=== PATIENT | female | born 1960 | race African-American/Black ===

== ENCOUNTER 2021-06-29 19:07 | Inpatient (IN) | payer MEDICARE ==
[2021-06-29 20:45] LABS: #Basophils 0.1 thou/uL (0.0-0.2); #Eosinphils 0.3 thou/uL (0.0-0.7); #Lymphocytes 4.1 thou/uL (1.20-3.40); #Monocytes 0.8 thou/uL (0.11-0.59); #Neutrophils 6.4 thou/uL (1.40-6.50); %Basophils 1.1 % (0.0-1.0); %Eosinophils 2.4 % (0.0-10.0); %Lymphocytes 35.1 % (21.0-51.0); %Monocytes 6.6 % (0.0-10.0); %Neutrophils 54.8 % (42.0-75.0); Mean Corpuscular HGB CONC 33.5 g/dL (32.0-36.0); Mean Corpuscular Hemoglobin 30.4 pg (27.0-31.0); Mean Corpuscular Volume 90.8 fL (78.0-98.0); Mean Platelet Volume 7.1 fL (7.4-10.4); Platelet Count 295 thou/uL (130-400); RBC Distribution Width 11.7 % (11.5-14.5); Red Blood Cell (RBC) Count 4.61 mill/uL (4.20-5.40); White Blood Cell (WBC) Count 11.7 thou/uL (4.8-10.8)
[2021-06-29] MEDS ORDERED: Nitroglycerin 2% Ointment 1 INCH/1 GM Packet ONE (20:57)
[2021-06-29 21:05] LABS: ALT (SGPT) 9 U/L (8-55); AST (SGOT) 13 U/L (5-34); Albumin 4.2 g/dL (3.5-5.0); Alkaline Phosphatase 110 U/L (40-110); Anion Gap 14 mmol/L (10-20); BUN (Urea Nitrogen) 12 mg/dL (9.8-20.1); Bilirubin, Total 0.4 mg/dL (0.2-1.2); Calc. Creatinine Clearance 0 mL/min (70-130); Calcium 9.7 mg/dL (7.8-10.44); Carbon Dioxide 27 mmol/L (22-29); Chloride 105 mmol/L (98-107); Globulin 3.5 g/dL (2.4-3.5); Glucose 96 mg/dL (70-105); Potassium 3.6 mmol/L (3.5-5.1); Protein, Total 7.7 g/dL (6.0-8.3); Sodium 142 mmol/L (136-145)
[2021-06-29] MEDS ORDERED: Prochlorperazine 10 MG/2 ML VIAL IVP SCH (21:45)
[2021-06-29] MEDS ORDERED: Acetaminophen 500 MG TAB ONE (21:52)
[2021-06-29 23:33] VITALS: BMI 36.6
[2021-06-30] MEDS ORDERED: Ondansetron ODT 4 MG TAB PO PRN (00:24)
[2021-06-30] MEDS ORDERED: Acetaminophen 325 MG TAB PO PRN (00:24)
[2021-06-30] MEDS ORDERED: Ondansetron PF 4 MG/2 ML Vial IVP PRN (00:24)
[2021-06-30] MEDS ORDERED: Acetaminophen 650 MG Suppository PR PRN (00:24)
[2021-06-30] MEDS ORDERED: hydrALAZINE 20 MG/ML VIAL SLOW IVP PRN ×2 (02:56→03:01)
[2021-06-30] MEDS ORDERED: Amlodipine 10 MG TAB PO SCH ×2 (03:00→21:00)
[2021-06-30 04:52] LABS: #Basophils 0.1 thou/uL (0.0-0.2); #Eosinphils 0.3 thou/uL (0.0-0.7); #Lymphocytes 4.2 thou/uL (1.20-3.40); #Monocytes 0.7 thou/uL (0.11-0.59); #Neutrophils 4.1 thou/uL (1.40-6.50); %Basophils 0.9 % (0.0-1.0); %Eosinophils 3.6 % (0.0-10.0); %Lymphocytes 44.9 % (21.0-51.0); %Monocytes 7.4 % (0.0-10.0); %Neutrophils 43.2 % (42.0-75.0); Hemoglobin 13.1 g/dL (12.0-16.0); Mean Corpuscular HGB CONC 32.8 g/dL (32.0-36.0); Mean Corpuscular Volume 91.5 fL (78.0-98.0); Mean Platelet Volume 7.4 fL (7.4-10.4); Platelet Count 271 thou/uL (130-400); RBC Distribution Width 11.9 % (11.5-14.5); Red Blood Cell (RBC) Count 4.36 mill/uL (4.20-5.40); White Blood Cell (WBC) Count 9.4 thou/uL (4.8-10.8)
[2021-06-30 05:13] LABS: Anion Gap 14 mmol/L (10-20); BUN (Urea Nitrogen) 10 mg/dL (9.8-20.1); Calc. Creatinine Clearance 133 mL/min (70-130); Calcium 9.4 mg/dL (7.8-10.44); Carbon Dioxide 22 mmol/L (22-29); Chloride 106 mmol/L (98-107); Glucose 90 mg/dL (70-105); Potassium 3.6 mmol/L (3.5-5.1); Sodium 138 mmol/L (136-145)
[2021-06-30] MEDS: Enoxaparin Sodium 40 MG/0.4 ML SYRINGE SC SCH (08:18)
[2021-06-30] MEDS: DorzolamidE/Timolol 2%/0.5% Ophth Soln 10 ml Bottle L EYE SCH (10:33)
[2021-06-30] MEDS ORDERED: Aspirin 325 mg Enteric Coated Tablet PO SCH (12:45)
[2021-06-30] MEDS ORDERED: Amoxicillin/Potassium Clav 875 MG TAB PO SCH (13:00)
[2021-06-30 14:04] LABS: SARS-CoV-2 PCR by NAA Not Detected (NotDetected)
[2021-06-30] MEDS: Latanoprost 0.005% Ophth Soln 2.5 ml Bottle EA EYE SCH (20:47)
[2021-06-30] MEDS: Atorvastatin Calcium 40 MG TAB PO SCH (20:48)
[2021-06-30] MEDS: lamoTRIgine 100 MG TAB PO SCH (20:49)
[2021-06-30] MEDS: Amoxicillin/Potassium Clav 875 MG TAB PO SCH (20:51)
[2021-07-01] MEDS: Enoxaparin Sodium 40 MG/0.4 ML SYRINGE SC SCH (08:00)
[2021-07-01] MEDS: Aspirin 81 mg Enteric Coated Tablet PO SCH (08:00)
[2021-07-01] MEDS: Amoxicillin/Potassium Clav 875 MG TAB PO SCH ×2 (08:00→21:06)
[2021-07-01 08:20] LABS: #Basophils 0.1 thou/uL (0.0-0.2); #Eosinphils 0.3 thou/uL (0.0-0.7); #Lymphocytes 3.1 thou/uL (1.20-3.40); #Monocytes 0.5 thou/uL (0.11-0.59); #Neutrophils 4.4 thou/uL (1.40-6.50); %Basophils 1.2 % (0.0-1.0); %Lymphocytes 36.5 % (21.0-51.0); %Monocytes 5.6 % (0.0-10.0); %Neutrophils 52.6 % (42.0-75.0); Mean Corpuscular HGB CONC 32.3 g/dL (32.0-36.0); Mean Corpuscular Hemoglobin 29.4 pg (27.0-31.0); Mean Platelet Volume 7.4 fL (7.4-10.4); Platelet Count 277 thou/uL (130-400); RBC Distribution Width 11.8 % (11.5-14.5); Red Blood Cell (RBC) Count 4.44 mill/uL (4.20-5.40); White Blood Cell (WBC) Count 8.4 thou/uL (4.8-10.8)
[2021-07-01 08:43] LABS: Hemoglobin A1c 5.5 % (4.0-6.0)
[2021-07-01 08:46] LABS: Anion Gap 14 mmol/L (10-20); BUN (Urea Nitrogen) 10 mg/dL (9.8-20.1); Calc. Creatinine Clearance 126 mL/min (70-130); Calcium 9.3 mg/dL (7.8-10.44); Carbon Dioxide 22 mmol/L (22-29); Cardiac Risk 6.4 (Less than 4.5); Chloride 106 mmol/L (98-107); Cholesterol 235 mg/dl (< 200 Desired); Glucose 91 mg/dL (70-105); HDL Cholesterol 37 mg/dL (>60 Neg Risk); LDL Cholesterol, Calculated 182 mg/dL; Magnesium 1.8 mg/dL (1.6-2.6); Phosphorus 3.7 mg/dL (2.3-4.7); Potassium 4.1 mmol/L (3.5-5.1); Sodium 138 mmol/L (136-145); Triglycerides 80 mg/dL (Less than 150)
[2021-07-01] MEDS: DorzolamidE/Timolol 2%/0.5% Ophth Soln 10 ml Bottle L EYE SCH (09:41)
[2021-07-01] MEDS ORDERED: Lidocaine 2% Viscous Solution 20 ML, Aluminum & Magnesium Hydroxide 30 ML, Donnatal Eli... SSW SCH (14:15)
[2021-07-01] MEDS ORDERED: Polyethylene Glycol 3350 17 GM Packet PO SCH (15:00)
[2021-07-01] MEDS ORDERED: Amlodipine 5 MG TAB PO SCH (15:00)
[2021-07-01 15:11] LABS: Troponin I Less than 0.010 ng/mL (< 0.028)
[2021-07-01] MEDS: Fluticasone Propionate Nasal Spray 16 gm Bottle NASAL SCH (21:07)
[2021-07-01] MEDS: Atorvastatin Calcium 40 MG TAB PO SCH (21:07)
[2021-07-01] MEDS: lamoTRIgine 100 MG TAB PO SCH (21:08)
[2021-07-01] MEDS: Latanoprost 0.005% Ophth Soln 2.5 ml Bottle EA EYE SCH (21:09)
[2021-07-01] MEDS: Senokot S 8.6-50 MG TAB PO SCH (21:09)
[2021-07-01 21:14] LABS: Troponin I Less than 0.010 ng/mL (< 0.028)
[2021-07-02 05:14] LABS: #Basophils 0.1 thou/uL (0.0-0.2); #Eosinphils 0.5 thou/uL (0.0-0.7); #Lymphocytes 3.5 thou/uL (1.20-3.40); #Monocytes 0.7 thou/uL (0.11-0.59); #Neutrophils 5.1 thou/uL (1.40-6.50); %Basophils 0.6 % (0.0-1.0); %Eosinophils 4.9 % (0.0-10.0); %Lymphocytes 35.4 % (21.0-51.0); %Monocytes 7.2 % (0.0-10.0); %Neutrophils 51.9 % (42.0-75.0); Mean Corpuscular HGB CONC 33.1 g/dL (32.0-36.0); Mean Corpuscular Hemoglobin 30.1 pg (27.0-31.0); Mean Platelet Volume 7.7 fL (7.4-10.4); Platelet Count 269 thou/uL (130-400); RBC Distribution Width 11.6 % (11.5-14.5); Red Blood Cell (RBC) Count 4.33 mill/uL (4.20-5.40); White Blood Cell (WBC) Count 9.8 thou/uL (4.8-10.8)
[2021-07-02 05:41] LABS: Anion Gap 12 mmol/L (10-20); BUN (Urea Nitrogen) 11 mg/dL (9.8-20.1); Calc. Creatinine Clearance 124 mL/min (70-130); Calcium 9.3 mg/dL (7.8-10.44); Carbon Dioxide 25 mmol/L (22-29); Chloride 104 mmol/L (98-107); Glucose 92 mg/dL (70-105); Magnesium 1.8 mg/dL (1.6-2.6); Phosphorus 3.7 mg/dL (2.3-4.7); Potassium 3.7 mmol/L (3.5-5.1); Sodium 137 mmol/L (136-145)
[2021-07-02] MEDS ORDERED: Lisinopril 10 MG TAB PO SCH (06:30)
[2021-07-02] MEDS: Senokot S 8.6-50 MG TAB PO SCH (08:30)
[2021-07-02] MEDS: Aspirin 81 mg Enteric Coated Tablet PO SCH (08:30)
[2021-07-02] MEDS: Amoxicillin/Potassium Clav 875 MG TAB PO SCH (08:30)
[2021-07-02] MEDS: Enoxaparin Sodium 40 MG/0.4 ML SYRINGE SC SCH (08:30)
[2021-07-02] MEDS: Latanoprost 0.005% Ophth Soln 2.5 ml Bottle EA EYE SCH (08:32)
[2021-07-02] MEDS: Fluticasone Propionate Nasal Spray 16 gm Bottle NASAL SCH (08:32)
[2021-07-02] MEDS: DorzolamidE/Timolol 2%/0.5% Ophth Soln 10 ml Bottle L EYE SCH (08:34)
[2021-07-02] MEDS ORDERED: Amlodipine 5 MG TAB PO SCH (09:00)
[2021-07-02] MEDS ORDERED: Polyethylene Glycol 3350 17 GM Packet PO SCH (09:00)
[2021-07-02] MEDS ORDERED: Loratadine 10 MG TAB PO SCH (09:00)
[2021-07-02 15:53] VITALS: TEMP 98.8
[2021-07-02 16:11] VITALS: BP 159/88
[2021-07-02] MEDS ORDERED: Amoxicillin/Potassium Clav 875 MG TAB PO SCH (19:15)
[2021-07-02] MEDS ORDERED: lamoTRIgine 100 MG TAB PO SCH (19:15)
[2021-07-02] MEDS ORDERED: Atorvastatin Calcium 40 MG TAB PO SCH (19:15)
[2021-07-03] MEDS ORDERED: Lisinopril 10 MG TAB PO SCH (09:00)
== END 2021-07-02 19:55 | disposition home or self-care (01) | DRG 65 ==
LOC: ERS 19:07 → 2NO 22:17 → OBSVTOIN 06-30 12:51 → NEURO 06-30 18:23
PROVIDERS: ADMIT Student in an Organized Health Care Education/Training Program; ATTEND Family Medicine
DX: I63.89 Other cerebral infarction (principal); I16.1 Hypertensive emergency; I50.32 Chronic diastolic (congestive) heart failure; R29.701 NIHSS score 1; I11.0 Hypertensive heart disease with heart failure; I16.0 Hypertensive urgency; M06.9 Rheumatoid arthritis, unspecified; K21.9 Gastro-esophageal reflux disease without esophagitis; H40.9 Unspecified glaucoma; E66.9 Obesity, unspecified; H54.40 Blindness, one eye, unspecified eye; D72.829 Elevated white blood cell count, unspecified; J01.40 Acute pansinusitis, unspecified; F41.9 Anxiety disorder, unspecified; Z79.899 Other long term (current) drug therapy; Z68.36 Body mass index [BMI] 36.0-36.9, adult
CPT/HCPCS: 36415; 70450; 70551; 71045; 80048; 80053; 80061; 83036; 83735; 84100; 84443; 84484; 85025; 93005; 93010; 93306; 93880; 96372; G0378; J0780; J1650; Q0162; U0003; U0005

== ENCOUNTER 2021-07-26 14:16 | Observation (INO) | payer MEDICARE ==
[2021-07-26 16:43] LABS: #Eosinphils 0.3 thou/uL (0.0-0.7); #Monocytes 0.7 thou/uL (0.11-0.59); #Neutrophils 4.7 thou/uL (1.40-6.50); %Basophils 0.3 % (0.0-1.0); %Eosinophils 2.9 % (0.0-10.0); %Lymphocytes 46.5 % (21.0-51.0); %Monocytes 6.6 % (0.0-10.0); %Neutrophils 43.7 % (42.0-75.0); Hemoglobin 13.6 g/dL (12.0-16.0); Mean Corpuscular HGB CONC 32.1 g/dL (32.0-36.0); Mean Corpuscular Hemoglobin 29.7 pg (27.0-31.0); Mean Corpuscular Volume 92.4 fL (78.0-98.0); Mean Platelet Volume 7.5 fL (7.4-10.4); Platelet Count 311 thou/uL (130-400); RBC Distribution Width 11.6 % (11.5-14.5); Red Blood Cell (RBC) Count 4.58 mill/uL (4.20-5.40); White Blood Cell (WBC) Count 10.6 thou/uL (4.8-10.8)
[2021-07-26 17:03] LABS: ALT (SGPT) 19 U/L (8-55); AST (SGOT) 18 U/L (5-34); Albumin 4.3 g/dL (3.5-5.0); Alkaline Phosphatase 135 U/L (40-110); Anion Gap 14 mmol/L (10-20); BUN (Urea Nitrogen) 19 mg/dL (9.8-20.1); Bilirubin, Total 0.3 mg/dL (0.2-1.2); Calc. Creatinine Clearance 0 mL/min (70-130); Calcium 9.9 mg/dL (7.8-10.44); Carbon Dioxide 23 mmol/L (22-29); Chloride 106 mmol/L (98-107); Globulin 3.5 g/dL (2.4-3.5); Glucose 98 mg/dL (70-105); Potassium 4.3 mmol/L (3.5-5.1); Protein, Total 7.8 g/dL (6.0-8.3); Sodium 139 mmol/L (136-145)
[2021-07-26 17:05] LABS: INR-International Normal Ratio 1.1; Prothrombin Time 14.1 sec (12.0-14.7)
[2021-07-26 17:06] LABS: PTT 33.9 sec (22.9-36.1)
[2021-07-26] MEDS ORDERED: Acetaminophen 325 MG TAB PO PRN (18:33)
[2021-07-26] MEDS ORDERED: hydrALAZINE 25 MG TAB PO PRN (18:34)
[2021-07-26 19:55] VITALS: BMI 38.1
[2021-07-26] MEDS ORDERED: Atorvastatin Calcium 40 MG TAB PO SCH (21:00)
[2021-07-26] MEDS ORDERED: lamoTRIgine 100 MG TAB PO SCH (21:00)
[2021-07-26] MEDS ORDERED: Latanoprost 0.005% Ophth Soln 2.5 ml Bottle EA EYE SCH (21:00)
[2021-07-27 06:04] LABS: #Basophils 0.1 thou/uL (0.0-0.2); #Eosinphils 0.3 thou/uL (0.0-0.7); #Lymphocytes 3.3 thou/uL (1.20-3.40); #Monocytes 0.6 thou/uL (0.11-0.59); #Neutrophils 3.1 thou/uL (1.40-6.50); %Basophils 1.4 % (0.0-1.0); %Eosinophils 3.9 % (0.0-10.0); %Lymphocytes 44.7 % (21.0-51.0); %Monocytes 7.9 % (0.0-10.0); %Neutrophils 42.1 % (42.0-75.0); Hemoglobin 12.8 g/dL (12.0-16.0); Mean Corpuscular HGB CONC 31.3 g/dL (32.0-36.0); Mean Corpuscular Hemoglobin 28.8 pg (27.0-31.0); Mean Corpuscular Volume 92.1 fL (78.0-98.0); Mean Platelet Volume 7.3 fL (7.4-10.4); Platelet Count 292 thou/uL (130-400); RBC Distribution Width 11.6 % (11.5-14.5); Red Blood Cell (RBC) Count 4.45 mill/uL (4.20-5.40); White Blood Cell (WBC) Count 7.3 thou/uL (4.8-10.8)
[2021-07-27 06:21] LABS: Anion Gap 13 mmol/L (10-20); BUN (Urea Nitrogen) 16 mg/dL (9.8-20.1); Calc. Creatinine Clearance 124 mL/min (70-130); Calcium 9.6 mg/dL (7.8-10.44); Carbon Dioxide 26 mmol/L (22-29); Chloride 105 mmol/L (98-107); Glucose 96 mg/dL (70-105); Potassium 4.2 mmol/L (3.5-5.1); Sodium 140 mmol/L (136-145)
[2021-07-27] MEDS ORDERED: Atorvastatin Calcium 40 MG TAB PO SCH (09:00)
[2021-07-27] MEDS ORDERED: Polyethylene Glycol 3350 17 GM Packet PO SCH (09:00)
[2021-07-27] MEDS ORDERED: DorzolamidE/Timolol 2%/0.5% Ophth Soln 10 ml Bottle EA EYE SCH (09:00)
[2021-07-27] MEDS ORDERED: Aspirin 81 mg Enteric Coated Tablet PO SCH (09:00)
[2021-07-27] MEDS ORDERED: Lisinopril 10 MG TAB PO SCH (09:00)
[2021-07-27] MEDS ORDERED: Amlodipine 5 MG TAB PO SCH (09:00)
[2021-07-27] MEDS ORDERED: Enoxaparin Sodium 40 MG/0.4 ML SYRINGE SC SCH (09:00)
[2021-07-27] MEDS ORDERED: Clopidogrel Bisulfate 75 MG TAB PO SCH (09:00)
[2021-07-27 12:06] VITALS: BP 138/75; TEMP 98.3
[2021-07-27 14:33] LABS: SARS-CoV-2 PCR by NAA Not Detected (NotDetected)
== END 2021-07-27 15:01 | disposition home or self-care (01) ==
LOC: ERS 14:16 → NEURO 18:29
PROVIDERS: ADMIT Internal Medicine; ATTEND Internal Medicine
DX: R20.0 Anesthesia of skin (principal); R51.9 Headache, unspecified; I10 Essential (primary) hypertension; K21.9 Gastro-esophageal reflux disease without esophagitis; H40.9 Unspecified glaucoma; M06.9 Rheumatoid arthritis, unspecified; K59.00 Constipation, unspecified; E66.9 Obesity, unspecified; Z68.38 Body mass index [BMI] 38.0-38.9, adult; Z86.73 Personal history of transient ischemic attack (TIA), and cerebral infarction without residual deficits; Z79.82 Long term (current) use of aspirin; Z79.899 Other long term (current) drug therapy; Z20.822 Contact with and (suspected) exposure to COVID-19
CPT/HCPCS: 70450; 70551; 71045; 80048; 80053; 84484; 85025 ×2; 85610; 85730; 93005; 97139 ×2; 99285; U0003; U0005; 36415; 96372; G0378; J1650

== ENCOUNTER 2024-02-12 12:13 | Emergency (ER) | payer MEDICARE ==
[2024-02-12 12:47] LABS: #Basophils Less than 0.03 10x3/uL (0.0-0.2); #Eosinphils Less than 0.03 10x3/uL (0.0-0.7); %Basophils 0.1 % (0.0-1.0); %Eosinophils 0.1 % (0.0-10.0); %Monocytes 10.3 % (0.0-10.0); %Neutrophils 77.2 % (42.0-75.0); Hematocrit 37.3 % (36.0-47.0); Hemoglobin 12.4 g/dL (12.0-16.0); Mean Corpuscular HGB CONC 33.2 g/dL (32.0-36.0); Mean Corpuscular Hemoglobin 29.5 pg (27.0-31.0); Mean Corpuscular Volume 88.8 fL (78.0-98.0); Mean Platelet Volume 9.6 fL (7.4-10.4); Platelet Count 255 10x3/uL (130-400); RBC Distribution Width 13.7 % (11.5-14.5)
[2024-02-12 13:05] LABS: ALT (SGPT) 14 U/L (8-55); AST (SGOT) 18 U/L (5-34); Alkaline Phosphatase 103 U/L (40-110); Anion Gap 15 mmol/L (10-20); BUN (Urea Nitrogen) 13 mg/dL (9.8-20.1); Bilirubin, Total 0.5 mg/dL (0.2-1.2); CRP,High Sensitivity (Inhouse) 8.71 mg/dL (< or = 0.5); Calc. Creatinine Clearance 0 mL/min (70-130); Calcium 10.2 mg/dL (7.8-10.44); Carbon Dioxide 21 mmol/L (23-31); Chloride 107 mmol/L (98-107); Estimated GFR 86; Glucose 128 mg/dL (80-115); Potassium 3.8 mmol/L (3.5-5.1); Sodium 139 mmol/L (136-145)
[2024-02-12] MEDS ORDERED: HYDROcodone/Acetaminophen 5/325 mg Tablet ONE (14:28)
[2024-02-12] MEDS ORDERED: Dexamethasone 10 MG/ML VIAL ONE (14:28)
[2024-02-12] MEDS ORDERED: Ketorolac Tromethamine 30 MG (1 mL) VIAL ONE (14:32)
== END 2024-02-12 14:23 | disposition home or self-care (01) ==
LOC: ERS 12:13
DX: M19.90 Unspecified osteoarthritis, unspecified site (principal); K21.9 Gastro-esophageal reflux disease without esophagitis; I10 Essential (primary) hypertension; M06.9 Rheumatoid arthritis, unspecified; H40.9 Unspecified glaucoma; E66.9 Obesity, unspecified; Z86.73 Personal history of transient ischemic attack (TIA), and cerebral infarction without residual deficits; Z79.82 Long term (current) use of aspirin; Z79.899 Other long term (current) drug therapy; Z75.3 Unavailability and inaccessibility of health-care facilities
CPT/HCPCS: 80053; 85025; 86141; J1100; J1885; 36415; 96372; 99283